=== PATIENT | male | born 1995 | race Caucasian/White ===

== ENCOUNTER 2022-07-31 14:04 | Emergency (ER) | payer MEDICAID ==
[2022-07-31] MEDS ORDERED: Sodium Chloride 0.9% 10 ML Syringe FLUSH PRN (14:26)
[2022-07-31] MEDS ORDERED: Ketorolac 30 MG/ML SDV IVPUSH ONE (14:35)
[2022-07-31 14:59] LABS: ESTIMATED GFR 70 mL/min (>60)
[2022-07-31 15:15] LABS: CORONAVIRUS COVID-19 NAA NEGATIVE (NEGATIVE)
[2022-07-31] MEDS ORDERED: cefTRIAXone 2 GM in Sodium Chloride 0.9% 50 ML IV ONE (16:13)
[2022-07-31] MEDS ORDERED: Sodium Chloride 0.9% 50 ML ONE (16:26)
[2022-07-31] MEDS ORDERED: cefTRIAXone 2 GM AdvVial IV ONE (16:26)
== END 2022-07-31 17:33 | disposition home or self-care (01) ==
LOC: JP.ED 14:04
DX: N13.2 Hydronephrosis with renal and ureteral calculous obstruction (principal); Z20.822 Contact with and (suspected) exposure to COVID-19; Z86.16 Personal history of COVID-19
CPT/HCPCS: 0241U; 36415; 74176; 80053; 81001; 83605; 83690; 85025; 86140; 87086; 96365; 96375; 99284; J0696; J1885; J3490